=== PATIENT | female | born 1985 | race Caucasian/White ===

== ENCOUNTER 2017-10-26 13:56 | Outpatient (RCR) | payer BC ==
[~2017-10-26 13:56] MED LIST: HEXAVITAMIN1 CAP; OMEGA-31000 MG
== END 2018-01-24 ==
LOC: MKS.ESL.PT
DX: O99.89 Other specified diseases and conditions complicating pregnancy, childbirth and the puerperium (principal); N39.3 Stress incontinence (female) (male); Z3A.00 Weeks of gestation of pregnancy not specified

== ENCOUNTER 2018-04-15 13:00 | Outpatient (RCR) | payer BC | END 2018-06-07 | disposition home or self-care (01) | LOC: MKS.ESL.PT | DX: N39.3 Stress incontinence (female) (male) (principal) ==

== ENCOUNTER → 2019-06-15 | Outpatient (CLI) | payer BC ==
--- NOTE | 2019-06-15 14:04 | NUR ---
Pt, Hetal Hermosillo ([facility]), presents for outpatient consult with six day old baby boy, Bandar Fletcher, for a evaluation. Pt reports did not go well with previous baby who is now 17 months old and is wanting to ensure a good start with Bandar. Bandar was born on [birth year] at [facility] by [facility], under the care of Ekaterina Sousa CNM. His weight was reported to be 7#13oz. Bandar was seen on 06/13/19 by his physician and weigh was reported to be 7#6oz. He has been exclusively breastfed and today his weight is 7#8.5oz. Pt reports Bandar nursed 10 times in the last 24 hours, voided 5 times and had 4 stools that were yellow and seedy. She states she feels her breasts have milk in them, noticably if she has feedings 2.5-3 hours apart. Pt breastfeeds on the right breast, initially in the football hold, and with instruction in the cross cradle hold. His weight gain after the right breast was 20gms. After nursing the left side he had an additional gain of 10gms, for a total gain of 30gms or 1.1oz. Desired gain for his age is about 60gms. Pt uses breast compression throughout the feedings. She states Bandar nursed about 1.25 hours prior to this appointment so this may contribute to the lower milk transfer. Because Bandar had a good weight gain between Dr. Low's appointment and today, we will monitor him closely before starting interventions. POC: Continue ad lenard. F/U: Two days, Thursday with this LC. Questions invited and answered.
== END ==
LOC: LAC 13:10
DX: Z39.1 Encounter for care and examination of lactating mother (principal); R63.3 Feeding difficulties; Z71.89 Other specified counseling

== ENCOUNTER → 2019-06-17 | Outpatient (CLI) | payer BC ==
--- NOTE | 2019-06-17 14:47 | NUR ---
Pt, Hetal Hermosillo ([facility]), presents for outpatient consult with 8 day old baby boy, Kiet Fletcher, for a follow up consult because of milk supply and weight gain concerns. They were seen two days ago by this LC. Bandar was born on [birth year] and weighed 7#13oz. Two days ago his weight was 7#8.5oz. Today's weight is 7#10oz. Pt reports Bandar continues to breastfeed about every 2 hours, and at noc cluster feeds, so actual number of feedings is about 16 per day. She also reports Bandar continues to meet output expectations with 5+voids, and 4-5 stools. Pt states she provided Bandar 1.5oz donor breastmilk early this morning because he had nursed all night long and did not seem to get content. After this he rested for about 3 hours. After bilaterally Bandar had a weight gain of 1.5oz. Intake would be expected to be 2-3oz if feeding 8-10 times per 24 hours. Discussed supplement, pt receptive, chooses to use Supplemental Nursing System (SNS). Equipment provided with instructions for use, but no supplement used at this time as pt does not have milk with her and prefers to not use formula. Although Bandar meets weight gain expectations, pt is exhausted, has little appetite, and is concerned Bandar never reaches the point of satisfaction where he seems content long enough to go 2-3 hours between feedings or gets "milk drunk". POC: 3-step feeding plan suggested and reviewed, pt to breastfeed on demand, supplement 0.5 to 1oz per feeding, followed by pumping bilaterally for 10 to 15 minutes; pump at least 8 times per 24 hours. Advised to make one pumping session a "power pump", and and consider herbal supplements. Handouts provided re: 3-step feeding plan, increasing milk supply and herbal supplements. F/U: Anticipate pt will participate in walk-in clinic next Thursday, Jun 21. Questions invited and answered.
== END ==
LOC: LAC 13:44
DX: Z39.1 Encounter for care and examination of lactating mother (principal); Z71.89 Other specified counseling

== ENCOUNTER → 2019-06-21 | Outpatient (CLI) | payer BC ==
--- NOTE | 2019-06-21 13:15 | NUR ---
Pt, Hetal Fletcher, presents to walk-in clinic with 11 day old baby boy, Bandar Fletcher. They have seen this LC x2 for outpatient consults because pt was not able to make full milk supply with previous child. Bandar was born on [birth year] at [facility]. weight was 7#13oz. At our previous consult Bandar weighed 7#10oz, drank 1.5oz from the breast, and pt was advised to supplement via SNS and pump to help improve milk supply. Bandar continues to breastfeed every 1.5-2 hours. He has had 5-6oz supplement of donor milk/EBM in the last 24 hours via SNS. Weight today is 7#14oz for a gain of 4oz over the last 4 days. Pt states Bandar nursed and supplemented about 1 hour prior to clinic, however he wakes and has strong feeding cues with his weight check. Pt places Bandar to the breast, he has a post feed weight gain of 28gms and continues to act hungry. Pt has bottle of EBM with her, Bandar drinks about 20ml from it. discusses with pt options for feeding. She has been pumping as able but with the frequent feedings, she gets about 5 opportunities per day. She collects approximately 10ml on average. Of concern is the fact that the pt has little appetite and gets very little rest. Discussed feeding plan of and supplementing 1-2oz by bottle after breast to ensure intake and get more opportunity for rest. Pt states she did this with her previous baby when it was apparent that she would not make a full milk supply. Pt has ordered some herbal supplements that she will try and continue to monitor milk production. POC: Pt will continue and supplementing Bandar to ensure he continues to gain weight well, and in a manner that will allow her to get more rest. She will try to pump as able and take herbal supplements. F/U: Anticipate next week at walk-in clinic, or as scheduled per pt's request. Questions invited and answered.
== END ==
LOC: LAC 11:40
DX: Z39.1 Encounter for care and examination of lactating mother (principal); Z71.89 Other specified counseling

== ENCOUNTER → 2019-06-28 | Outpatient (CLI) | payer BC ==
--- NOTE | 2019-06-28 13:28 | NUR ---
Pt, Hetal Fletcher, presents to walk in clinic with 3 week old baby boy, Bandar Fletcher, for a weight check and evaluation. They have been seen regularly at clinic. Bandar was born on [birth year] at [facility]. weight was 7#13oz. Last week his weight was 7#14oz. They have been and supplementing by bottle to aid Shiela in getting more sleep. She states she feels that has helped, she gets more rest. He continues to eat 10 times daily, every 2-3 hours. She reports he takes 3-5oz supplement per day and sleeps 3-4 hours a noc. Today Bandar weighs 8#9.3oz for a gain of 11.3oz in the last 7 days. After Bandar has a total weight gain of 52gms (1.9oz), which is the most he has ever taken in clinic. Pt observes he did go a full 3 hours between feedings where at other appts he has only been 1.5-2 hours. Because of excellent weight gain with minimal supplement, pt advised to continue current feeding plan, re-evaluate next week, and decide if adding pumping back in will be benifical. She has also started herbal supplements, so this may be helping as well. POC: Continue current feeding plan, supplement as indicated with feeding cues. F/U: Anticipated next week at clinic. Questions invited and answered.
== END ==
LOC: LAC 11:14
DX: Z39.1 Encounter for care and examination of lactating mother (principal); Z71.89 Other specified counseling

== ENCOUNTER → 2019-07-05 | Outpatient (CLI) | payer BC ==
--- NOTE | 2019-07-05 11:56 | NUR ---
Pt, Hetal Fletcher, into walk in clinic with one month Bandar Fletcher for breast feeding evaluation. Hetal and Bandar have been in for the last several weeks, please see previous notes. Bandar's weight was noted as 7# 13 oz. Last week, Bandar's prefeed weight was noted as 8 # 9.3 oz. Today's prefeed weight was noted as 9# 5.3 oz (4234 gms), a gain of 12 oz in the last week. Hetal states Bandar is nursing approx 10 times per day and takes 2-4 oz of supplement every day. Diapers are WNL. While in the clinic, Bandar nursed bilaterally with a total gain of 2.1 oz. Hetal states she gave him 1.5 oz supplement and nursed shortly before coming into clinic. POC: Continue to feed ad lenard. Try decreasing supplemental feedings.
== END ==
LOC: LAC 10:47
DX: Z39.1 Encounter for care and examination of lactating mother (principal); Z71.89 Other specified counseling